=== PATIENT | female | born 1975 | race Caucasian/White ===

== ENCOUNTER → 2023-01-24 14:54 | Outpatient (BNVA) | payer BC, SELFPAY | PROVIDERS: Visit Provider Orthopaedic Surgery | DX: S32.058 Other fracture of fifth lumbar vertebra (principal); M48.062 Spinal stenosis, lumbar region with neurogenic claudication; X58.XXXA Exposure to other specified factors, initial encounter | CPT/HCPCS: 72110 ==